=== PATIENT | female | born 1985 | race Caucasian/White ===

== ENCOUNTER 2019-01-29 20:55 | Emergency (ER) | payer OTHER ==
--- NOTE | 2019-01-29 21:17 | ED Physician Documentation ---
General Adult - HISTORIAN Historian: patient - HPI Stated Complaint: rash Chief Complaint: General Adult Onset: days ago (1) Timing: still present Severity: moderate Further Comments: yes (Pt is a 33 yo female with a pruritic rash on extremities and swelling in her R foot. Pt believes it is a reaction to medication. Pt had been taking bupropion, and did get a brief rash from that in the past. She recently started escitalopram and she thinks that the medications together cause her extensive rash. Pt stopped these meds 2 days ago. Pt has been taking benadryl with some short-lived relief. No problems breathing or swallowing.) - ROS CONST: no problems EYES/ENT: none CVS/RESP: none GI/: none MS/SKIN/LYMPH: rash - PAST HX Past History: other (depression) Allergies/Adverse Reactions: Allergies Allergy/AdvReac Type Severity Reaction Status Date / Time codeine Allergy Verified 01/29/19 21:37 - SOCIAL HX Smoking History: cigarettes - FAMILY HX Family History: No - REVIEWED ASSESSMENTS Nursing Assessment Reviewed: Yes Vitals Reviewed: Yes Progress - Progress Progress: Solu-medrol 125 mg IM Rx Prednisone 50 mg. Take one by mouth once daily for 5 days. Continue Benadryl as directed. Discontinue escitalopram and bupropion until follow up with your provider. General Adult Physical Exam - PHYSICAL EXAM GENERAL APPEARANCE: mild distress EENT: pharynx normal NECK: normal inspection, supple RESPIRATORY: no resp distress, chest non-tender, breath sounds normal CVS: reg rate & rhythm, heart sounds normal BACK: normal inspection, no CVA tenderness SKIN: other (large patches of erythema on arms and legs; swelling R foot) EXTREMITIES: non-tender, normal range of motion, no evidence of injury, no edema NEURO: oriented X3, motor nml, sensation nml Discharge Clincal Impression: rash, possible medication allergy Referrals: Yvette Woodall MD [Primary Care Provider] - Condition: Good Disposition: 01 HOME, SELF-CARE Decision to Admit: NO Decision Time: 21:23
[2019-01-29] MEDS ORDERED: methylPREDNISolone SOD SUCC 125 MG/2 ML VIAL IM ONE (21:19)
[2019-01-29 21:37] VITALS: BP 116/78
== END 2019-01-29 21:50 | disposition home or self-care (01) ==
LOC: ED 20:55
DX: R21 Rash and other nonspecific skin eruption (principal); Z72.0 Tobacco use
CPT/HCPCS: 96372; 99283; J2930

== ENCOUNTER 2019-03-15 16:00 | Outpatient (CLI) | payer OTHER | END 2019-03-15 16:03 | LOC: LABRHC 16:00 | PROVIDERS: ATTEND Family Medicine | DX: Z12.4 Encounter for screening for malignant neoplasm of cervix (principal) | CPT/HCPCS: 88148; G0143 ==